=== PATIENT | male | born 1990 | race Caucasian/White ===

== ENCOUNTER 2016-07-14 15:27 | Emergency (ER) | payer BC ==
[2016-07-14 16:40] VITALS: BP 112/67
--- NOTE | 2016-07-14 16:53 | UC ---
Knee Pain HPI - HPI Summary HPI Summary: hyperextended left knee playing basketball 2 days ago---knee feels sturdy, however has some pain "inside of knee" - History of Current Complaint Chief Complaint: UCLowerExtremity Stated Complaint: LEFT KNEE INJURY Time Seen by Provider: 07/14/16 16:44 Hx Obtained From: Patient Onset/Duration: Sudden Onset, Lasting Days - 2, Still Present Severity Initially: Mild Severity Currently: Mild Location Of Injury: left knee Pain Intensity: 4 Pain Scale Used: 0-10 Numeric Character: Aching Aggravating Factor(s): Nothing Alleviating Factor(s): Nothing Associated Signs And Symptoms: Positive: Swelling Able to Bear Weight: Yes - Allergies/Home Medications Allergies/Adverse Reactions: Allergies Allergy/AdvReac Type Severity Reaction Status Date / Time Penicillins Allergy Hives Verified 07/14/16 16:36 PMH/Surg Hx/FS Hx/Imm Hx Previously Healthy: Yes Endocrine History Of: Denies: Diabetes Respiratory History Of: Denies: COPD GI/ History Of: Denies: Gastroesophageal Reflux - Surgical History Surgical History: Yes Surgery Procedure, Year, and Place: Appenedectomy, 2011, [place]; [place] [facility] - Family History Known Family History: Positive: None - Social History Occupation: Employed Full-time - religious assistant at [employer] Lives: With Family Alcohol Use: Occasionally Alcohol Amount: SOCIALLY Substance Use Type: None Smoking Status (MU): Never Smoked Tobacco - Immunization History Most Recent Tetanus Shot: 08/16/13 Review of Systems Constitutional: Negative Skin: Negative Eyes: Negative ENT: Negative Respiratory: Negative Cardiovascular: Negative Gastrointestinal: Negative Genitourinary: Negative Motor: Negative Neurovascular: Negative Musculoskeletal: Arthralgia - left knee Neurological: Negative Psychological: Negative All Other Systems Reviewed And Are Negative: Yes Physical Exam Triage Information Reviewed: Yes Appearance: Well-Appearing, No Pain Distress, Well-Nourished Vital Signs: Initial Vital Signs Temp 97.9 F 07/14/16 16:33 Pulse 62 07/14/16 16:33 Resp 16 07/14/16 16:33 BP 112/67 07/14/16 16:33 Pulse Ox 100 07/14/16 16:33 Vital Signs Reviewed: Yes Eye Exam: Normal ENT Exam: Normal Dental Exam: Normal Neck exam: Normal Neck: Positive: 1 Respiratory Exam: Normal Cardiovascular Exam: Normal Abdominal Exam: Normal Musculoskeletal Exam: Normal Neurological Exam: Normal Psychological Exam: Normal Skin Exam: Normal Diagnostics - Laboratory Diagnostic Studies Completed/Ordered: small effusion left knee Knee Pain Course/Dx - Course Course Of Treatment: claire, rice, nsaids, follow with ortho or sports medicine this week - Differential Dx/Diagnosis Differential Diagnosis/HQI/PQRI: Fracture (Closed), Internal Derangement Of Knee , Infection, Sprain, Strain Provider Diagnoses: Left knee effusion Discharge - Discharge Plan Condition: Stable Disposition: HOME Patient Education Materials: Swollen Knee Joint (ED), RICE Therapy (ED) Referrals: Claude Cano MD [Medical Doctor] - 3 Days Irving Nash MD [Medical Doctor] - 3 Days Kush Dietrich MD [Primary Care Provider] -
--- NOTE | 2016-07-14 17:41 | RAD ---
Indication: LEFT knee pain following hyperextension injury 3 days ago. Pain lateral, anterior, and posterior. Increased pain with fall extension and flexion as well as weightbearing. Comparison: None. Technique: AP, tunnel, lateral, sunrise views LEFT knee. REPORT AND IMPRESSION: Small suprapatellar effusion. Negative for fracture or malalignment. Unremarkable soft tissue contours.
== END 2016-07-14 17:57 | disposition home or self-care (01) ==
LOC: UCCORT 15:27
DX: M25.462 Effusion, left knee (principal); Z88.0 Allergy status to penicillin
CPT/HCPCS: 99212; G0463

== ENCOUNTER 2017-04-03 12:35 | Emergency (ER) | payer BC ==
[2017-04-03 13:15] VITALS: BP 112/81
--- NOTE | 2017-04-03 13:34 | UC ---
Skin Complaint HPI - HPI Summary HPI Summary: Pt c/o gradual onset of macular, erythematous "rash" bilateral axilla, bilateral groin and elbows. - History of Current Complaint Chief Complaint: UCRash Time Seen by Provider: 04/03/17 13:11 Stated Complaint: WAIST,ARMS SKIN COMPLAINT Hx Obtained From: Patient Onset/Duration: Gradual Onset, Lasting Days, Still Present Skin Exposure Onset/Duration: Days Ago Timing: Constant Onset Severity: Mild Current Severity: Mild Location: Discrete - elbows, axilla, groin Character: Redness Aggravating Factor(s): Nothing Alleviating Factor(s): Unknown Associated Signs & Symptoms: Positive: Rash - Allergy/Home Medications Allergies/Adverse Reactions: Allergies Allergy/AdvReac Type Severity Reaction Status Date / Time Penicillins Allergy Hives Verified 04/03/17 13:12 Home Medications: Home Medications [id number] [Vicks Dayquil/Nyquil Cold] 30 ml PO Q6H PRN [History Confirmed 04/03/17] Review of Systems Constitutional: Negative Skin: Rash Eyes: Negative ENT: Negative Respiratory: Negative Cardiovascular: Negative Gastrointestinal: Negative Genitourinary: Negative Motor: Negative Neurovascular: Negative Musculoskeletal: Negative Neurological: Negative, Headache Is Patient Immunocompromised?: No All Other Systems Reviewed And Are Negative: Yes PMH/Surg Hx/FS Hx/Imm Hx Previously Healthy: Yes - Surgical History Surgical History: Yes Surgery Procedure, Year, and Place: Appenedectomy, 2010, [place]; [place] [facility] - Family History Known Family History: Positive: Cardiac Disease - Social History Occupation: Employed Full-time Alcohol Use: Occasionally Alcohol Amount: SOCIALLY Substance Use Type: None Smoking Status (MU): Never Smoked Tobacco Have You Smoked in the Last Year: No - Immunization History Most Recent Influenza Vaccination: Not the 2017/2017 Season Most Recent Tetanus Shot: 08/16/13 Physical Exam Triage Information Reviewed: Yes Appearance: Well-Appearing Vital Signs: Initial Vital Signs Temp 97.8 F 04/03/17 13:08 Pulse 66 04/03/17 13:08 Resp 16 04/03/17 13:08 BP 112/81 04/03/17 13:08 Pulse Ox 99 04/03/17 13:08 Eye Exam: Normal ENT Exam: Normal Dental Exam: Normal Respiratory: Positive: No respiratory distress Musculoskeletal Exam: Normal Neurological Exam: Normal Psychological Exam: Normal Skin: Positive: rashes - bilateral elbows, axillae, and groin erythematous, pin prick, non pruritic macular rash, Course/Dx - Differential Diagnoses - Skin Complaint Differential Diagnoses: Contact Dermatitis, Eczema, Tinea - Diagnoses Provider Diagnoses: eczema Discharge - Discharge Plan Condition: Stable Disposition: HOME Patient Education Materials: Eczema (ED) Referrals: Kaur AYALA,Kush Wilson [Primary Care Provider] - If Needed Additional Instructions: Lotions OTC: Cetaphil Cerave
== END 2017-04-03 13:45 | disposition home or self-care (01) ==
LOC: UCCORT 12:35
DX: L30.9 Dermatitis, unspecified (principal); Z88.0 Allergy status to penicillin
CPT/HCPCS: 99211; G0463